=== PATIENT | male | born 1960 | race Two or more races ===

== ENCOUNTER 2020-01-14 21:11 | Emergency (ER) | payer OTHER ==
[~2020-01-14] VITALS: Ht 152.4 cm; Wt 64.9 kg
[~2020-01-14 21:11] MED LIST: NO HOME MEDS
[2020-01-14 21:16] VITALS: BP 170/86
== END 2020-01-14 21:34 | disposition home or self-care (01) ==
LOC: ER 21:12
DX: S61.210A Laceration without foreign body of right index finger without damage to nail, initial encounter (principal); W26.8XXA Contact with other sharp object(s), not elsewhere classified, initial encounter; Y93.89 Activity, other specified; Y92.89 Other specified places as the place of occurrence of the external cause; Y99.8 Other external cause status
CPT/HCPCS: 12001; 99282

== ENCOUNTER 2022-01-20 16:07 | Emergency (ER) | payer OTHER ==
[~2022-01-20] VITALS: Ht 149.9 cm; Wt 63.6 kg
[2022-01-20 16:30] VITALS: BP 143/82
== END 2022-01-20 17:53 | disposition home or self-care (01) ==
LOC: ER 16:07
DX: S40.012A Contusion of left shoulder, initial encounter (principal); X58.XXXA Exposure to other specified factors, initial encounter; Y93.89 Activity, other specified; Y92.89 Other specified places as the place of occurrence of the external cause; Y99.8 Other external cause status
CPT/HCPCS: 99282

== ENCOUNTER 2025-03-13 09:25 | Emergency (ER) | payer OTHER ==
[~2025-03-13] VITALS: Ht 152.4 cm; Wt 54.9 kg
[2025-03-13 09:49] LABS: BASOPHILS # (AUTO) 0.1 X10'3 (0-0.2); BASOPHILS % (AUTO) 1.4 % (0-1); EOSINOPHILS # (AUTO) 0.4 X10'3 (0-0.9); HEMATOCRIT 45.6 % (42.0-52.0); LYMPHOCYTES # (AUTO) 1.5 X10'3 (1.1-4.8); LYMPHOCYTES % (AUTO) 30.9 % (21-51); MEAN CORPUSCULAR HEMOGLOBIN 32.8 PG (27.0-31.0); MEAN CORPUSCULAR VOLUME 93.6 FL (78-98); MEAN PLATELET VOLUME 6.3 FL (7.4-10.4); MONOCYTES # (AUTO) 0.4 X10'3 (0-0.9); MONOCYTES % (AUTO) 7.6 % (2-12); NEUTROPHILS # (AUTO) 2.5 X10'3 (1.8-7.7); NEUTROPHILS % (AUTO) 51.1 % (42-75); PLATELET COUNT 232 X10'3 (140-440); RED BLOOD COUNT 4.87 X10'6 (4.70-6.10); WHITE BLOOD COUNT 4.8 X10'3 (4.5-11.0)
[2025-03-13 10:02] LABS: ALANINE AMINOTRANSFERASE 36 U/L (12-78); ALBUMIN 3.9 G/DL (3.4-5.0); ALBUMIN/GLOBULIN RATIO 1.2 (1.1-1.5); ALKALINE PHOSPHATASE 72 IU/L (46-116); ANION GAP 6 (8-16); ASPARTATE AMINO TRANSFERASE 26 U/L (10-37); BILIRUBIN,TOTAL 0.5 MG/DL (0.1-1.0); BLOOD UREA NITROGEN 14 MG/DL (7-18); BUN/CREATININE RATIO 19.2 (10.0-20.0); CALCIUM 8.3 MG/DL (8.5-10.1); CHLORIDE 104 MMOL/L (99-107); CREATININE 0.73 MG/DL (0.60-1.10); GLUCOSE 147 MG/DL (70-104); LIPASE 126 U/L (16-77); POTASSIUM 3.8 MMOL/L (3.5-5.1); SODIUM 140 MMOL/L (135-145); TOTAL CARBON DIOXIDE 29.6 MMOL/L (24-32); TOTAL PROTEIN 7.1 G/DL (6.4-8.2); eCRCL 71 ML/MIN; eGFR > 90 ML/MIN
--- NOTE | 2025-03-13 10:18 | Physician Documentation ---
History of Present Illness ~ Chief Complaint: Constipation Stated Complaint: CONSTIPATION X3 DAYS/ABD PAIN Time Seen by MD: 09:54 Primary Medical Doctor: none Mode of Arrival: POV, Ambulatory HPI 65-year-old male presenting with 3 days of constipation. He tells me that he normally has a bowel movement every day. He has not had a bowel movement for the past 3 days. He tells me that he feels like he needs to have a bowel movement and when he tries he feels like there is a hard stool ball around his bottom, but he can not pass it. He reports some mild lower abdominal discomfort but no significant pain. No fevers, nausea, vomiting, or upper abdominal pain. No history of abdominal surgeries. He did take a stool softener tab this morning. No other treatments tried. He had been eating and drinking okay but did not eat yet today. No other acute concerns Medication Reconciliation Allergies: Coded Allergies: No Known Allergies (Unverified , 06/29/15) Miscellaneous Medications Home Med List (No Home Medications), (Reported) Past Medical History Past Medical History: No Pertinent History Past Surgical History: no surgical history Smoking Status: Former smoker Alcohol Use: None Drug Use: none Lives with: Spouse Lives In: Home Occupation: employed Review of Systems Constitutional: Denies: fever Gastrointestinal: Reports: abdominal pain, constipated; Denies: nausea, vomiting Physical Exam Vital Signs: Temperature: 98.6, Source: Temporal, Heart Rate: 76, Respiratory Rate: 18, BP: 149/93, Pulse Oximetry: 97, Weight: 54.850 Physical Exam General: This is a pleasant and overall well-appearing middle-aged man sitting calmly in bed HEENT: Atraumatic, oropharynx is moist Heart: Regular rate and rhythm, normal-appearing peripheral perfusion Lungs: normal work of breathing, normal oxygen saturation on room air Abdomen: Soft, nondistended. Mild discomfort on palpation across the lower abdomen, but no significant tenderness, no rebound or guarding Neuro: Alert and oriented, no focal deficits Psychiatric: Calm and cooperative with exam Progress Results/Orders Results/Orders Orders - RAAD REYES MD X-Ray Exam Abdomen 2 Views (03/13/25 10:12) Abdomen,Single View(Kub) (03/13/25 11:53) Completed Orders - RAAD REYES MD Cbc/Diff (03/13/25 09:32) BMP (03/13/25 09:32) Lipase (03/13/25 09:32) CMP (03/13/25 09:32) Abdomen,Single View(Kub) (03/13/25 11:53) Magnesium Hydrox Oral Susp. (Milk Of Mag (03/13/25 12:15) Mineral Oil Enema (Mineral Oil Enema) (03/13/25 12:15) Medications Received in ER Medications (Trade) Dose Ordered Sig/Sandra Route PRN Reason Start Time Stop Time Status Last Admin Dose Admin (milk of magnesia oral suspension) 30 ml ONCE ONCE PO 03/13/25 12:15 03/13/25 12:16 DC 03/13/25 12:52 30 ML Vital Signs 03/13/25 03/13/25 03/13/25 03/13/25 09:29 09:43 10:01 11:50 Temp 98.6 98.6 98.6 Pulse 90 76 75 Resp 15 16 18 18 B/P (MAP) 165/83 149/93 (111) 146/79 (101) Pulse Ox 94 97 98 Laboratory Tests Test 03/13/25 09:39 White Blood Count 4.8 Red Blood Count 4.87 Hemoglobin 16.0 Hematocrit 45.6 Mean Corpuscular Volume 93.6 Mean Corpuscular Hemoglobin 32.8 H Mean Corpuscular Hemoglobin Concent 35.0 Red Cell Distribution Width 13.0 Platelet Count 232 Mean Platelet Volume 6.3 L Neutrophils (%) (Auto) 51.1 Lymphocytes (%) (Auto) 30.9 Monocytes (%) (Auto) 7.6 Eosinophils (%) (Auto) 9.0 H Basophils (%) (Auto) 1.4 H Neutrophils # (Auto) 2.5 Lymphocytes # (Auto) 1.5 Monocytes # (Auto) 0.4 Eosinophils # (Auto) 0.4 Basophils # (Auto) 0.1 CBC Comment Sodium Level 140 Potassium Level 3.8 Chloride Level 104 Carbon Dioxide Level 29.6 Anion Gap 6 L Blood Urea Nitrogen 14 Creatinine 0.73 Estimated GFR/1.73 m2 > 90 BUN/Creatinine Ratio 19.2 Glucose Level 147 H Calcium Level 8.3 L Total Bilirubin 0.5 Aspartate Amino Transf (AST/SGOT) 26 Alanine Aminotransferase (ALT/SGPT) 36 Alkaline Phosphatase 72 Total Protein 7.1 Albumin 3.9 Globulin 3.2 Albumin/Globulin Ratio 1.2 Lipase 126 H Chemistry Comments EKG/XRAY/CT/US/VASC/MRI Abdominal X-Ray : Additional Comment I personally reviewed the x-ray, and it shows: A nonobstructive bowel gas pattern, no air-fluid levels, no significant stool burden Medical Decision Making Diff Dx Rectal:Considerations: Include: Impaction Additional Comments Differential includes constipation, bowel obstruction, rectal stool ball, diverticulitis Assessment The patient presents with 3 days of constipation. He has a benign abdominal exam without peritoneal findings. X-ray shows a nonobstructive bowel gas pattern. Overall this appears consistent with constipation, without signs of obstruction or other dangerous intra-abdominal process. Labs are grossly unremarkable including no significant leukocytosis. After shared decision- making conversation he felt comfortable returning home with an enema and laxatives, and he will continue with stool softeners as well. Return precauti ons given. Departure Time of Disposition: 12:16 Disposition: 01 HOME / SELF CARE / HOMELESS Impression: Primary Impression: Constipation Condition: Stable Discharge Instructions: Constipation, Adult Referrals: NO PRIMARY CARE PROVIDER (PCP) Comments You are having constipation, but this does not appear consistent with a bowel obstruction or other dangerous problem. You were given a strong laxative here in the ER, as well as an enema that you can do when you get home. For the next couple of days, please use laxatives like MiraLax. Use 1 package 17 g 1 to 2 times a day until you have loose bowel movements. Continue to take a daily stool softener to help prevent constipation. If you develop severe abdominal pain or other worsening symptoms return to the emergency department. Education Educated: Patient Educated regarding: diagnosis, treatment Signature Scribe Signature: carola Attestation: RAAD Espinoza MD March 13, 2025 10:18
[2025-03-13 11:50] VITALS: BP 146/79; PULSE 75; RESP 18; TEMP 98.6; O2SAT 98
[2025-03-13] MEDS ORDERED: mineral oil 133ml enema RC PRN (12:15)
--- NOTE | 2025-03-13 12:35 | RADIOLOGY REPORT ---
Exam: DI ABDOMEN,SINGLE VIEW(KUB) Indication: Constipation please do upright, eval obstruction Comparison: None Technique: 1 radiographic views of the abdomen. Findings: Nonobstructive bowel gas pattern noted. There is no definite evidence for pneumoperitoneum. No abnormal calcifications noted. Impression: 1. Nonobstructive bowel gas pattern noted.
[2025-03-13] MEDS: magnesium hydroxide 30ml (MOM) UD suspension PO ONE (12:52)
== END 2025-03-13 12:56 | disposition home or self-care (01) ==
LOC: ER 09:26
DX: K59.00 Constipation, unspecified (principal)
CPT/HCPCS: 36415; 74018; 80053; 83690; 85025; 99284